=== PATIENT | female | born 1985 | race Caucasian/White ===

== ENCOUNTER 2018-02-12 22:28 | Day surgery (SDC) | payer SELFPAY ==
[2018-02-12 22:54] VITALS: BP 131/89; TEMP 99.4; BMI 26.6
--- NOTE | 2018-02-12 23:24 | PDOC.LDHP ---
Labor and Delivery H&P Chief complaint: contractions HPI: 32 y/o at 38w5d, patient of Dr. Jaimes, presents with ctx since 7pm. Denies VB, LOF, or decreased FM. ROS neg for HEENT, cv, pulm, gi, gu, neuro, psych, skin, musculoskeletal or constitutional symptoms other than mentioned above. OB History Details: 2 prior SVDs Current complications: none Past Medical History: None Current medications: pre- vitamins Previous surgical history: none Allergies/Adverse Reactions: Allergies Allergy/AdvReac Type Severity Reaction Status Date / Time penicillin G Allergy Intermediate Hives Verified 02/12/18 22:45 Social history: none - Physical Exam Vital signs reviewed and normal: yes General: NAD, resting Lungs: nonlabored breathing Abdomen: gravid Extremeties: no edema FHT: category 1 (145, mos variability, + accels, no decels) [place] contractions every: irregular - Vaginal Exam cm dilated: 3 Effacement: 75% Station: -1 - Assessment 32 y/o at 38w5d with no e/o active labor. SVE unchanged after 2 hours and ctx have spaced out. status reassuring with reactive NST. - Plan -: D/c home with precautions. Advised to keep all appointments and continue daily activity counts.
== END 2018-02-13 01:25 | disposition home or self-care (01) ==
LOC: L&D/OP 22:28
PROVIDERS: ATTEND Obstetrics & Gynecology
DX: O47.1 False labor at or after 37 completed weeks of gestation (principal); Z3A.38 38 weeks gestation of pregnancy; Z88.0 Allergy status to penicillin
CPT/HCPCS: 99283

== ENCOUNTER 2018-02-13 10:54 | Inpatient (IN) | payer SELFPAY ==
[2018-02-13] MEDS ORDERED: NS / Oxytocin 40 units/1000ml 1,000 ML IV PRN (11:00)
[2018-02-13] MEDS ORDERED: Acetaminophen 500 MG TAB PO PRN (11:00)
[2018-02-13] MEDS ORDERED: Butorphanol Tartrate 1 MG/ML VIAL SLOW IVP PRN (11:00)
[2018-02-13] MEDS ORDERED: Ondansetron HCl/PF 4 MG/2 ML Vial IVP PRN ×4 (11:00→18:56)
[2018-02-13] MEDS ORDERED: Diphenoxylate HCl/Atropine Tablet PO PRN ×3 (11:00→12:50)
[2018-02-13] MEDS ORDERED: Docusate 100 MG CAP PO PRN (11:00)
[2018-02-13] MEDS ORDERED: Lidocaine 1% (PF) 30 ML VIAL SC PRN (11:00)
[2018-02-13] MEDS ORDERED: Promethazine HCl 25 MG/ML VIAL IM PRN ×3 (11:00→12:14)
[2018-02-13] MEDS ORDERED: Misoprostol 200 MCG TAB PR PRN (11:00)
[2018-02-13] MEDS ORDERED: Ibuprofen 800 MG TAB PO PRN (11:00)
[2018-02-13] MEDS ORDERED: HYDROcodone/Acetaminophen 5/325 mg Tablet PO PRN ×2 (11:00)
[2018-02-13] MEDS ORDERED: DISCONTINUE ALL PREVIOUS NARCOTICS FS SCH (11:15)
[2018-02-13] MEDS: Lactated Ringer's 1,000 ML IV SCH ×2 (11:15→12:25)
[2018-02-13] MEDS ORDERED: Bupivacaine 0.75% 13.4 ML, fentaNYL Citrate/PF 400 MCG in Sodium Chloride 0.9% 78.6 ML EPIDURAL SCH (11:15)
[2018-02-13 11:16] VITALS: BMI 26.6
[2018-02-13 11:26] LABS: Hemoglobin 12.5 g/dL (12.0-16.0); Mean Corpuscular HGB CONC 33.4 g/dL (32.0-36.0); Mean Corpuscular Hemoglobin 30.2 pg (27.0-31.0); Mean Corpuscular Volume 90.5 fL (78.0-98.0); Mean Platelet Volume 9.8 fL (7.4-10.4); Platelet Count 170 thou/uL (130-400); RBC Distribution Width 12.3 % (11.5-14.5); Red Blood Cell (RBC) Count 4.14 mill/uL (4.20-5.40); White Blood Cell (WBC) Count 9.9 thou/uL (4.8-10.8)
[2018-02-13] MEDS ORDERED: diphenhydrAMINE 50 MG/ML VIAL IVP PRN ×2 (12:13→12:14)
[2018-02-13] MEDS ORDERED: Eucerin (Mineral Oil/Petrolatum,White) 30 gm Jar TOP PRN ×2 (12:13→12:14)
[2018-02-13] MEDS ORDERED: Acetaminophen 325 MG TAB PO PRN ×2 (12:13→12:14)
[2018-02-13] MEDS ORDERED: Naloxone HCl 0.4 mg/ml Vial IVP PRN ×4 (12:13→12:14)
[2018-02-13] MEDS ORDERED: ePHEDrine/0.9% NaCl/PF SYRINGE 50 mg/10 ml SLOW IVP PRN ×2 (12:13→12:14)
[2018-02-13] MEDS ORDERED: Lactated Ringer's 500 ML IV PRN ×2 (12:13→12:14)
[2018-02-13] MEDS ORDERED: fentaNYL Citrate/PF 400 MCG, Bupivacaine 0.5% 20 ML in Sodium Chloride 0.9% 72 ML EPIDURAL SCH (12:15)
[2018-02-13] MEDS ORDERED: Communication Order-Pharmacy FS SCH ×2 (12:15)
[2018-02-13 12:18] LABS: HBSAg Index 0.16 S/CO (0-0.99); Hep B Surf Ag Non-Reactive S/CO (NonReactive)
[2018-02-13 12:24] LABS: Syphilis Antibody Nonreactive (Nonreactive); Syphilis Antibody Index 0.05 S/CO (<1.00 Non-Reactive)
[2018-02-13] MEDS ORDERED: NS w/ Oxytocin 10 units 500 ML IVPB SCH (17:45)
[2018-02-13] MEDS ORDERED: diphenhydrAMINE 25 MG CAP PO PRN (18:56)
[2018-02-13] MEDS ORDERED: Zolpidem Tartrate 5 MG TAB PO PRN (18:56)
[2018-02-13] MEDS ORDERED: Bisacodyl 10 MG SUPP PR PRN (18:56)
[2018-02-13] MEDS ORDERED: Preparation H Ointment 28 GM TUBE PR PRN (18:56)
[2018-02-13] MEDS ORDERED: Lanolin Ointment 7 GM TUBE TOP PRN (18:56)
[2018-02-13] MEDS ORDERED: Benzocaine/Menthol 20-0.5% 60 ML CAN TOP PRN (18:56)
[2018-02-13] MEDS ORDERED: Acetaminophen/Codeine 30-300mg Tablet PO PRN (18:56)
[2018-02-13] MEDS ORDERED: Milk Of Magnesia 30 ML UDCUP PO PRN (18:56)
[2018-02-13] MEDS ORDERED: NS / Oxytocin 40 units/1000ml 1,000 ML IV SCH (19:00)
[2018-02-13] MEDS ORDERED: Bupivacaine/Epinephrine 0.25% 30 ML VIAL ONE (20:00)
[2018-02-13] MEDS ORDERED: Adacel (T-DAP) 0.5 ML VIAL IM ONE (20:00)
[2018-02-13] MEDS ORDERED: Lidocaine 2% MPF 10 ML AMP (For Epidural Use) ONE (20:00)
[2018-02-13] MEDS: Ibuprofen 800 MG TAB PO SCH (21:54)
[2018-02-13] MEDS: Docusate Calcium (SURFAK) 240 MG CAP PO SCH (23:42)
[2018-02-14] MEDS: Ibuprofen 800 MG TAB PO SCH ×3 (05:45→21:42)
[2018-02-14] MEDS: Prenatal Vitamin 1 TAB PO SCH (08:48)
[2018-02-14] MEDS: Docusate Calcium (SURFAK) 240 MG CAP PO SCH ×2 (08:48→21:42)
[2018-02-14] MEDS: Ferrous Sulfate 325 MG TAB PO SCH ×2 (09:14→17:33)
[2018-02-14] MEDS: Acetaminophen/Codeine 30-300mg Tablet PO PRN ×2 (10:12→17:24)
[2018-02-15] MEDS: Acetaminophen/Codeine 30-300mg Tablet PO PRN (04:54)
[2018-02-15] MEDS: Ibuprofen 800 MG TAB PO SCH (06:33)
[2018-02-15 08:23] VITALS: BP 124/78; TEMP 97.8
[2018-02-15] MEDS: Prenatal Vitamin 1 TAB PO SCH (09:58)
[2018-02-15] MEDS: Docusate Calcium (SURFAK) 240 MG CAP PO SCH (09:58)
[2018-02-15] MEDS: Ferrous Sulfate 325 MG TAB PO SCH (10:00)
== END 2018-02-15 12:30 | disposition home or self-care (01) | DRG 775 ==
LOC: L&D 10:54 → 3SW 23:23
PROVIDERS: ADMIT Obstetrics & Gynecology; ATTEND Obstetrics & Gynecology
PROC: 10E0XZZ Delivery of Products of Conception, External Approach (ICD-10-PCS; principal; 2018-02-13)
DX: O69.1XX0 Labor and delivery complicated by cord around neck, with compression, not applicable or unspecified (principal); Z3A.38 38 weeks gestation of pregnancy; Z37.0 Single live birth
CPT/HCPCS: 36415; 51702; 85027; 86780; 86850; 86900; 86901; 87340; J1200; J2001; J3010; J7050